=== PATIENT | male | born 1995 | race Caucasian/White ===

== ENCOUNTER 2018-05-02 16:50 | Emergency (ER) | payer BC ==
[~2018-05-02] VITALS: Ht 185.4 cm; Wt 80.0 kg
[2018-05-02 16:58] VITALS: Ht 185.4 cm; Wt 80.0 kg
[2018-05-02] MEDS ORDERED: SOD CHLORIDE 0.9% 1,000 ML IV STA ×2 (17:27→22:49)
[2018-05-02] MEDS ORDERED: LEVETIRACETAM 1000 MG (PMX) 100 ML IVPB STA (17:27)
--- NOTE | 2018-05-02 17:29 | ERD ---
ER Documentation Chief Complaint Chief Complaint PT REPORTS CONVULSIONS AT HOME EARLIER, PMD ADVISED ER VISIT, NO HX HPI This is a 23-year-old male who said he had a seizure prior to arrival. He said on Tuesday she had his first seizure. He said that he had taken some Xanax off the street and he had a convulsion a few hours later. He said that in a twitching rhythmic manner, that he cannot stop. He said it lasted about 45 seco nds and stopped. He said he called his doctor and told it is probably because he took a bad Xanax. Today the patient has not had any drugs use at all but he said that he had another convulsion just prior to arrival. He said the same thing happened again lasting about 40 seconds. Patient states felt nauseated all day and had an episode of vomiting and dry heaving was nonbilious and nonbloody. No focal neurological complaints now no headache no neck pain no shoulder pain no recent illness or trauma ROS All systems reviewed and are negative except as per history of present illness. Medications Home Meds No Active Prescriptions or Reported Meds Allergies Allergies: Coded Allergies: No Known Allergy (Unverified , 05/02/18) PMhx/Soc History of Surgery: No Anesthesia Reaction: No Hx Neurological Disorder: No Hx Respiratory Disorders: No Hx Cardiac Disorders: No Hx Psychiatric Problems: Yes (PTSD) Hx Miscellaneous Medical Probl: No Hx Alcohol Use: Yes Hx Substance Use: Yes ("LONG TIME AGO.") Hx Tobacco Use: No Smoking Status: Never smoker FmHx Family History: No coronary disease Physical Exam Vitals Vital Signs Date Temp Pulse Resp B/P (MAP) Pulse Ox O2 O2 Flow FiO2 Time Delivery Rate 05/02/18 97.4 69 18 150/78 99 16:58 (102) Physical Exam Const: Well-developed, well-nourished Head: Atraumatic, normocephalic Eyes: Normal Conjunctiva, PERRLA, EOMI, normal sclera, no nystagmus ENT: Normal External Ears, Nose and Mouth, moist mucus membranes. Neck: Full range of motion. No meningismus, no lymphadenopathy. Resp: Clear to auscultation bilaterally, no wheezing, rhonchi, rales Cardio: Regular rate and rhythm, no murmurs, S1 S2 present Abd: Soft, non tender x 4, non distended. Normal bowel sounds, no guarding or rebound, no pulsitile abdominal masses or bruits Skin: No petechiae or rashes, no ecchymosis , no maculopapular rash Back: No midline or flank tenderness Ext: No cyanosis, or edema, FROM x 4, normal inspection, neurovascularly intact x 4 Neur: Awake and alert, STR 5/5 x 4, sensation intact x 4, no focal findings, cerebellum intact Psych: Normal Mood and Affect Result Diagram: 05/02/18173805/02/181738 Results 24 hrs Laboratory Tests Test 05/02/18 17:36 05/02/18 17:39 Bedside Glucose 131 mg/dL White Blood Count 9.8 10^3/ul Red Blood Count 5.98 10^6/ul Hemoglobin 18.0 g/dl Hematocrit 52.1 % Mean Corpuscular Volume 87.1 fl Mean Corpuscular Hemoglobin 30.1 pg Mean Corpuscular Hemoglobin Concent 34.5 g/dl Red Cell Distribution Width 12.5 % Platelet Count 258 10^3/UL Mean Platelet Volume 11.0 fl Immature Granulocytes % 0.300 % Neutrophils % 85.3 % Lymphocytes % 9.5 % Monocytes % 4.5 % Eosinophils % 0.1 % Basophils % 0.3 % Nucleated Red Blood Cells % 0.0 /100WBC Immature Granulocytes # 0.030 10^3/ul Neutrophils # 8.3 10^3/ul Lymphocytes # 0.9 10^3/ul Monocytes # 0.4 10^3/ul Eosinophils # 0.0 10^3/ul Basophils # 0.0 10^3/ul Nucleated Red Blood Cells # 0.0 10^3/ul Sodium Level 141 mmol/L Potassium Level 4.7 mmol/L Chloride Level 103 mmol/L Carbon Dioxide Level 22 mmol/L Anion Gap 16 Blood Urea Nitrogen 8 mg/dl Creatinine 0.83 mg/dl Est Glomerular Filtrat Rate mL/min > 60 mL/min Glucose Level 138 mg/dl Calcium Level 10.2 mg/dl Total Bilirubin 0.9 mg/dl Direct Bilirubin 0.00 mg/dl Indirect Bilirubin 0.9 mg/dl Aspartate Amino Transf (AST/SGOT) 27 IU/L Alanine Aminotransferase (ALT/SGPT) 18 IU/L Alkaline Phosphatase 77 IU/L Total Protein 8.5 g/dl Albumin 5.0 g/dl Globulin 3.50 g/dl Albumin/Globulin Ratio 1.42 Current Medications Medications Dose Sig/Jena Start Time Status Last (Trade) Ordered Route PRN Stop Time Admin Dose Reason Admin Sodium 1,000 ml @ Q1H STAT 05/02/18 DC 05/02/18 Chloride 1,000 mls/hr IV 17:27 17:42 05/02/18 18:26 100 ml @ ONCE STAT 05/02/18 DC 05/02/18 Levetiracetam 400 mls/hr IVPB 17:27 17:42 05/02/18 17:41 Procedures/MDM Patient: JOHNNY HAIR : 1995 Age: 23 Sex: M MR #: [id number] DOS: 05/02/18 1727 Ordering MD: ADELFO ORTIZ DO Location: E/R Room/Bed: PROCEDURE: CT head CLINICAL INDICATION: Seizure TECHNIQUE: Contiguous 2.5 mm axial images were obtained from the vertex to the skull base. No intravenous contrast was administered. The calculated dose length product (DLP) = 634.23 mGy-cm. The CTDlvol = 39.1 mGy. One or more of the following dose reduction techniques were used: Automated exposure control, adjustment of the mA and or KV according to patient size, or use of iterative r econstruction technique. DICOM images are available. COMPARISON: None FINDINGS: There is no acute intracranial hemorrhage or acute territorial infarct. No mass or mass effect is seen on this noncontrast study. There The left lateral ventricle is asymmetrically enlarged compared to right which is greater than expected for normal variation. There is approximately 5 mm of deviation of the intraventricular septum to the right. Recommend further evaluation with MRI. Vilchis-white matter differentiation is within normal limits. Visualized paranasal sinuses are normally aerated. Bony calvarium is unremarkable. IMPRESSION: 1. No acute intracranial hemorrhage or acute territorial infarct. 2. Asymmetrical enlargement of the left lateral ventricle greater than expected for normal anatomical variation. This causes 5 mm of displacement of the intraventricular septum to the right. Question if there is an intraventricular arachnoid cyst. Recommend further evaluation with MRI. No obvious transependymal flow was seen.. 3. Right ventricular system is normal in caliber Call report was made to Dr. Ortiz on 05/02/2018 6:37:32 PM RPTAT: HH .Hakan Carter MD, Date Time Electronically viewed and signed by .Hakan Carter MD, on 05/02/2018 18:40 .W/ CC: ADELFO ORTIZ DO [id number] The patient was given IV load of Keppra. Unclear if the patient is being truthful with me about benzo withdrawal seizure is a possibility here or true seizure. The radiologist saw irregular ventricle size that is more than he typically with seeing wants me to get MRI to rule out a mass or arachnoid cyst that could be causing some obstructive flow. I have ordered an MRI of the brain and if this is negative I will discharge home with Keppra Departure Diagnosis: Primary Impression: Seizure disorder Condition: Stable ADELFO ORTIZ DO May 02, 2018 17:29
[2018-05-02] MEDS ORDERED: LEVE500S8 PO (19:21)
[2018-05-02 23:28] VITALS: BP 119/65; PULSE 83; RESP 18
== END 2018-05-02 23:28 | disposition home or self-care (01) ==
LOC: E/R 16:50
DX: G40.909 Epilepsy, unspecified, not intractable, without status epilepticus (principal); R40.2142 Coma scale, eyes open, spontaneous, at arrival to emergency department; R40.2362 Coma scale, best motor response, obeys commands, at arrival to emergency department; R40.2252 Coma scale, best verbal response, oriented, at arrival to emergency department
CPT/HCPCS: 36415; 70450; 70551; 80053; 82962; 85025; 96374; 99285; J1953; J7030